=== PATIENT | male | born 1985 | race Caucasian/White ===

== ENCOUNTER → 2018-02-26 | Outpatient (CLI) | payer OTHER | LOC: CIMAGING 14:00 | PROVIDERS: ATTEND Family Medicine | DX: M54.5 Low back pain (principal); Z87.828 Personal history of other (healed) physical injury and trauma | CPT/HCPCS: 72100-PO ==

== ENCOUNTER → 2019-01-29 | Outpatient (CLI) | payer OTHER | LOC: CIMAGING 11:51 | PROVIDERS: ATTEND Family Medicine | DX: M19.012 Primary osteoarthritis, left shoulder (principal); M25.552 Pain in left hip | CPT/HCPCS: 73030-PO; 73502-PO ==